=== PATIENT | female | born 1955 | race Caucasian/White ===

== ENCOUNTER → 2017-02-22 | Outpatient (CLI) | payer BC ==
[~2017-02-22] MED LIST: AMITRIPTYLINE H50 MG PO; AMITRYPTYLINE PO; ASPIRIN EC81 M1 PO; ASPIRIN PO; BACTRIM DS TABL1 TA1 PO; DIOVAN HCT 80/11 TAB PO; EFFER-K 20 MEQ20 MEQ PO; FAMOTIDINE PO; FLOMAX0.4 M1 DOB; KEFLEX PO; KEFLEX250 M1 PO; MACROBID100 M1 PO; METOPROLOL PO; NORCO1 TAB 10/3 DOB; OMEPRAZOLE20 M2 PO; SIMVASTATIN40 MG PO; TIZANIDINE HCL4 M1 PO; TOPROL XL PO; VALSARTAN-HCTZ1 EAC1 PO; VICODIN 5/1 TAB 5/50 PO; ZITHROMAX PO; ZOCOR PO; ZOFRAN PO; [UNRECOGNIZED DRUG - OTHER]
--- NOTE | ~2017-02-22 | MR103 ---
[facility] A Service of [facility] & [facility] / [facility] RADIOLOGY TEXT RESULTS PATIENT: JAYLA HAGEN LOCATION: [facility] : 59 UNIT #: [id number] AGE: [address]: Nicole Armendarzi SEX: F ORDER DR: [id number] [address] [address] [id number] O MR#: [id number] Acc #: [id number] NAME: JAYLA HAGEN : 1955 SEX: F STUDY DATE/TIME: 02/22/2017 8:45 UNIT: [facility] ROOM: STUDY DESCRIPTION: MR Knee Wo Contrast Lt Attending Physician: Nicole Armendariz P.A.-C. Referring Physician: Nicole Armendariz P.A.-C. Ordering Physician: Camille Caal M.D. Primary Care Physician: Camille Caal M.D. MRI CENTER REPORT This report is preliminary unless electronic signature is present. EXAM MRI left knee, 02/22/2017 COMPARISON Left knee radiographs 01/07/2017 and MRI left knee 05/18/2015. HISTORY Order states left knee pain. History of medial meniscal/last MRI 2014. History sheet states no new injury or surgery. Continued left knee pain especially medially for about 2 years with some swelling in the past month or two. History of breast cancer. FINDINGS There is a mild effusion without a popliteal cyst. There is a minimal patella etta. There is no patellofemoral chondromalacia identified. Quadriceps and patellar tendons are intact. Cruciate ligaments are normal. The lateral meniscus, lateral collateral ligament complex, and popliteus tendon are intact. The articular cartilage of the lateral compartment is within normal limits. There is a longitudinal oblique undersurface tear in the posterior body/horn of the medial meniscus. This extends into a free margin tear of the midbody segment which is blunted. There is a peripherally and caudally displaced meniscal flap extending towards the medial tibial gutter at the level of the MCL. The meniscal flap appears somewhat macerated and measures up to 8.0 mm craniocaudal. There is reactive mild MCL bursitis. The MCL is intact. There is presumed reactive marrow edema of the periphery of the medial femoral condyle and medial tibial plateau. There has been development of [id number] grade STS. [facility] A Service of [facility] RADIOLOGY TEXT RESULTS PATIENT: JAYLA HAGEN LOCATION: [facility] : 59 UNIT #: [id number] AGE: [address]: Nicole Armendariz SEX: F ORDER DR: chondromalacia of the weightbearing medial compartment, minimal subarticular cystic change of the periphery of the medial tibial plateau, and moderate grade chondromalacia of the posterior non-weightbearing medial femoral condyle. There is no marrow lesion, fracture, or metastatic disease. Several tiny loose bodies are suspected near the popliteus hiatus posterolaterally. IMPRESSION 1. Development of mild medial compartment arthrosis since the previous MRI of 05/18/2015 with persistent complex medial meniscus tear detailed above including an 8.0 mm macerated meniscal flap in the medial tibial gutter. 2. Small effusion. 3. Cruciate ligaments and lateral compartment are normal. 4. Mild patella etta. 5. Tiny loose bodies near the popliteus hiatus. Dictated by... Ifeoma Ashby M.D. THIS IS AN ELECTRONICALLY VERIFIED REPORT Ifeoma Ashby M.D. at 02/26/2017 8:42 AM Olesya TD: 02/25/2017 14:54 JOB #: [id number] MRI CENTER REPORT Page 1 of 1
== END | disposition home or self-care (01) ==
LOC: SMRI 07:51
DX: M25.562 Pain in left knee (principal); S83.232A Complex tear of medial meniscus, current injury, left knee, initial encounter; M17.12 Unilateral primary osteoarthritis, left knee
CPT/HCPCS: 73721